=== PATIENT | male | born 1955 | race Caucasian/White ===

== ENCOUNTER 2021-12-23 07:53 | Inpatient (IN) | payer BC, MEDICARE ==
[~2021-12-23] VITALS: Ht 188 cm; Wt 83.0 kg
--- NOTE | 2021-12-23 07:55 | NUR ---
BIB C/O R UPPER QUADRANT PAIN X 2 DAYS AND DIARRHEA. TO ER BED 11, HOOKED TO MONITOR, CHANGED TO HOSP GOWN, WARM BLANKET PROVIDED. PATIENT AAO x 4. BREATHING EVEN AND UNLABORED. AWAITING MD AYERS
--- NOTE | 2021-12-23 07:58 | NUR ---
URINE COLLECTED AND SENT
--- NOTE | 2021-12-23 08:02 | NUR ---
IV ESTABLIHSED L AC 20G. LABS DRAWN AND COLLECTED AT BEDSIDE
--- NOTE | 2021-12-23 08:10 | NUR ---
DR CASTILLO AT BEDSIDE
[2021-12-23 08:40] LABS: BASOPHILS % (AUTO) 0.1 % (0.0-2.0); HEMATOCRIT 52 % (39-51); HEMOGLOBIN 16.9 g/dL (13.5-17.5); LYMPHOCYTES # (AUTO) 0.7 K/uL (0.8-4.8); LYMPHOCYTES % (AUTO) 7.4 % (20.0-44.0); MEAN CORPUSCULAR HGB CONC 33 g/dl (31.0-36.0); MEAN CORPUSCULAR VOLUME 86 fL (80-96); MONOCYTES # (AUTO) 0.7 K/uL (0.1-1.30); MONOCYTES % (AUTO) 7.1 % (2.0-12.0); NEUTROPHILS # (AUTO) 8.2 K/uL (1.8-8.9); NEUTROPHILS % (AUTO) 85.4 % (43.0-81.0); PLATELET COUNT (AUTO) 263 K/uL (150-450); RED BLOOD CELL COUNT(AUTO) 6.01 MIL/uL (4.5-6.0); WHITE BLOOD COUNT (AUTO) 9.6 K/uL (4.3-11.0)
[2021-12-23] MEDS ORDERED: ONDANSETRON HCL/PF 4 MG/2 ML VIAL ONE (08:44)
[2021-12-23] MEDS ORDERED: MORPHINE SULFATE INJ 4 MG/ML DISP.SYRIN ONE ×2 (08:44→10:03)
[2021-12-23 08:59] LABS: ALBUMIN 3.9 g/dL (3.4-5.0); BILIRUBIN,DIRECT 0.2 mg/dL (0.0-0.2); BILIRUBIN,TOTAL 0.9 mg/dL (0.2-1.0); BILIRUBIN,URINE NEGATIVE (NEGATIVE); COLOR,URINE YELLOW (YELLOW); CREATININE 1.8 mg/dL (0.6-1.3); LEUKOCYTE ESTERASE ,URINE NEGATIVE (NEGATIVE); NITRITE, URINE NEGATIVE (NEGATIVE); PH,URINE 6.5 (5.0-8.0); PROTEIN,URINE TRACE mg/dl (NEGATIVE); UGLUCOSE NEGATIVE (NEGATIVE); UROBILINOGEN,URINE 0.2 EU/dL (0.2)
[2021-12-23 09:15] LABS: BACTERIA,URINE Many /HPF (None Seen); WBC,URINE 51-80 /HPF (0-3)
[2021-12-23] MEDS ORDERED: MORPHINE SULFATE INJ 2 MG/ML DISP.SYRIN IV ONE ×2 (09:30→10:30)
[2021-12-23] MEDS ORDERED: ONDANSETRON HCL/PF 4 MG/2 ML VIAL IV ONE (09:30)
[2021-12-23] MEDS ORDERED: IV NS 0.9% 250 ML BAG IV ONE (09:30)
[2021-12-23] MEDS ORDERED: IV NS 0.9% 1,000 ML BAG IV ONE (10:00)
[2021-12-23] MEDS ORDERED: KETOROLAC TROMETHAMINE 15 MG/ML VIAL ONE (10:03)
[2021-12-23] MEDS ORDERED: KETOROLAC TROMETHAMINE INJ 30 MG/ML VIAL IM ONE (10:30)
[2021-12-23] MEDS ORDERED: CEFTRIAXONE 1GM BAG (ER ONLY) 1 GM/50 ML PIGGYBACK IV ONE (10:30)
[2021-12-23] MEDS ORDERED: CEFTRIAXONE 1GM BAG (ER ONLY) 50 ML IV ONE (10:31)
[2021-12-23] MEDS ORDERED: ATEN25TA PO (10:36)
[2021-12-23] MEDS ORDERED: ATOR10TA PO (10:36)
--- NOTE | 2021-12-23 10:38 | NUR ---
COVID TEST COLLECTED AND SENT
[2021-12-23] MEDS ORDERED: FAMO40TA7 PO (10:58)
--- NOTE | 2021-12-23 11:35 | NUR ---
CALLED [facility] TO [address] HO.
--- NOTE | 2021-12-23 11:47 | NUR ---
CALLED NURSING SUP FOR BED INQUIRY. AWAITING FOR CALLBACK.
[2021-12-23] MEDS ORDERED: FAMOTIDINE 40 MG TABLET PO PRN (12:00)
[2021-12-23] MEDS ORDERED: ACETAMINOPHEN 325 MG TABLET PO PRN (12:00)
[2021-12-23] MEDS ORDERED: hydrALAZINE HCL IV 20 MG VIAL IV PRN (12:00)
--- NOTE | 2021-12-23 12:39 | NUR ---
RECEIVED CALL BACK FROM NURSING SUP, PT GIVEN RM [phone] BED 2.
--- NOTE | 2021-12-23 12:54 | NUR ---
REPORT GIVEN TO ROBINSON FOR GORDON
[2021-12-23] MEDS ORDERED: FAMOTIDINE (20 MG) 20 MG TABLET PO PRN (13:30)
--- NOTE | 2021-12-23 13:30 | NUR ---
PT TRANPORTED TO 3W IN STABLE CONDITION AND RECIVED BY NURSE WILLIS
[2021-12-23] MEDS: MORPHINE SULFATE INJ 2 MG/ML DISP.SYRIN IV PRN ×2 (13:32→17:17)
[2021-12-23] MEDS: IV NS 0.9% 1,000 ML IV PRN (13:57)
--- NOTE | 2021-12-23 14:00 | NUR ---
RN ADMITTING NOTES ADMITTED THIS 66 Y/O MALE PATIENT FROM [facility], CAME TO THE UNIT @1320, TRANSPORTED VIA GURNEY, ACCOMPANIED BY ER STAFF CORNELIO PEREZ. PATIENT IS ALERT AND ORIENTED X4, VERBALLY RESPONSIVE, NO SIGNS OF ACUTE DISTRESS NOTED. WITH ADMITTING DIAGNOSIS OF ABDOMINAL PAIN AND UTI. NOTED WITH IV ACCESS ON LEFT ANTECUBITAL AREA #20G, INTACT AND PATENT, FLUSHES WELL. 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 PATIENT STILL C/O ABDOMINAL PAIN. WILL MEDICATE FOR PAIN NEEDED. BODY ASSESSMENT DONE, SKIN GENERALLY INTACT. OLD SURGICAL SCAR NOTED ON ABDOMINAL AREA. NO SKIN ISSUES NOTED ON ADMISSION. PATIENT ORIENTED TO ROOM. SAFETY MEASURE IN PLACE. BED IN LOWEST AND LOCKED POSITION, SR UP X2, CALL LIGHT PLACED WITHIN EASY REACH. VITAL SIGNS FOLLOWS: 98.2, 76, 18, 121/77, SPO2 97% IN RA. WILL CONTINUE TO MONITOR PATIENT.
[2021-12-23] MEDS: CEFEPIME 2 GM in IV D5W 100 ML IV SCH ×2 (14:06→21:16)
[2021-12-23 16:03] VITALS: BP 129/77
[2021-12-23] MEDS: ATENOLOL 25 MG TABLET PO SCH (17:00)
[2021-12-23] MEDS: HYDROMORPHONE 1 MG/1 ML DISP.SYRIN IV PRN ×2 (18:52→21:39)
--- NOTE | 2021-12-23 19:00 | NUR ---
RN CLOSING NOTES PATIENT IN BED, AWAKE, NO SIGNS OF ACUTE DISTRESS NOTED. STABLE ON ROOM AIR. NO SOB NOTED. IV ACCESS ON LEFT AC #20G, INTACT AND PATENT, WITH NS @125 ML/HR INFUSING WELL. STILL WITH C/O ABDOMINAL PAIN. MEDICATED WITH MORPHINE AND DILAUDID NEEDED. CURRENTLY ON NPO. SAFETY MEASURE MAINTAINED. BED IN LOWEST AND LOCKED POSITION, SIDE RAILS UP X2, CALL LIGHT PLACED WITHIN EASY REACH. WILL ENDORSE TO NEXT SHIFT FOR CONTINUITY OF CARE.
[2021-12-23 20:00] VITALS: BP 133/79
--- NOTE | 2021-12-23 20:00 | NUR ---
RECEIVED PATIENT IN BED, ALERT/ORIENTED X4, ROOM AIR, EPIGASTRIC PAIN, NO N/V AT THIS TIME, NPO NOW, NS AT 125 ML/HR, INDEPENDENT WITH ADLS, AMBULATES, KEPT SAFE, WILL CONTINUE TO MONITOR.
[2021-12-23] MEDS: HEPARIN SODIUM, PORCINE 5000 UNITS/1 ML VIAL SQ SCH (21:15)
[2021-12-23] MEDS: ATORVASTATIN 10 MG TABLET PO SCH (22:00)
[2021-12-24] MEDS: HYDROMORPHONE 1 MG/1 ML DISP.SYRIN IV PRN ×6 (00:20→17:15)
[2021-12-24] MEDS: IV NS 0.9% 1,000 ML IV PRN (00:33)
[2021-12-24 04:00] VITALS: BP 110/70
[2021-12-24] MEDS: ONDANSETRON HCL/PF 4 MG/2 ML VIAL IVP PRN (04:07)
[2021-12-24 06:10] LABS: BASOPHILS % (AUTO) 0.1 % (0.0-2.0); HEMATOCRIT 44 % (39-51); HEMOGLOBIN 14.6 g/dL (13.5-17.5); LYMPHOCYTES # (AUTO) 0.8 K/uL (0.8-4.8); LYMPHOCYTES % (AUTO) 9.4 % (20.0-44.0); MEAN CORPUSCULAR HGB CONC 33 g/dl (31.0-36.0); MEAN CORPUSCULAR VOLUME 86 fL (80-96); MONOCYTES % (AUTO) 11.1 % (2.0-12.0); NEUTROPHILS # (AUTO) 6.8 K/uL (1.8-8.9); NEUTROPHILS % (AUTO) 79.4 % (43.0-81.0); PLATELET COUNT (AUTO) 203 K/uL (150-450); RED BLOOD CELL COUNT(AUTO) 5.11 MIL/uL (4.5-6.0); WHITE BLOOD COUNT (AUTO) 8.5 K/uL (4.3-11.0)
--- NOTE | 2021-12-24 06:51 | NUR ---
ALERT/ORIENTED X4, DX UTI, ROOM AIR, EPIGASTRIC PAIN, DILAUDID 1MG IV Q3HRS, GIVEN ROUND THE CLOCK, ADEQUATE RELIEF, NAUSEA WO VOMITING, ZOFRAN GIVEN X1. CONTINENT OF BOWEL AND BLADDER, INDEPENDENT WITH AMBULATION, PER DR. HOUSTON, ATROPHIC KIDNEY, NPO NOW, PER PATIENT UNABLE TO TOLERATE ANYTHING PO. UROLOGY CONSULT, AGGRESSIVE FLUID RESUSCITATION, NEPHRO CONSULT, PAIN CONTROL. PENDING US BLADDER, CONTINUE MAXIPIME Q12 HOURS.
--- NOTE | 2021-12-24 07:35 | NUR ---
RN NOTES AMBULATES W/ STEADY GAIT, NOT IN ACUTE DISTRESS. STILL W/ ABD PAIN, TOLERABLE AT THIS TIME. NPO STATUS. IVF INFUSING. SAFETY MEASURES IN PLACE. WILL CONTINUE TO MONITOR.
[2021-12-24 07:45] LABS: ALBUMIN 2.6 g/dL (3.4-5.0); BILIRUBIN,TOTAL 0.5 mg/dL (0.2-1.0); CALCIUM, SERUM 7.9 mg/dL (8.5-10.1); CREATININE 1.2 mg/dL (0.6-1.3); MAGNESIUM 1.8 mg/dL (1.8-2.4); PHOSPHORUS 2.5 mg/dL (2.5-4.9); POTASSIUM 4.2 mmol/L (3.5-5.1); TOTAL PROTEIN, SERUM 5.7 g/dL (6.4-8.2)
[2021-12-24] MEDS: ATENOLOL 25 MG TABLET PO SCH ×2 (08:27→17:16)
[2021-12-24] MEDS: HEPARIN SODIUM, PORCINE 5000 UNITS/1 ML VIAL SQ SCH ×2 (09:05→20:43)
[2021-12-24] MEDS: CEFEPIME 2 GM in IV D5W 100 ML IV SCH ×2 (09:05→20:33)
--- NOTE | 2021-12-24 10:38 | NUR ---
RN NOTES PATIENT SEEN BY DR. GURROLA TODAY W/ ORDER NOTED. START W/ CLEAR LIQUID FOR NOW TO CHECK FOR TOLERANCE.
--- NOTE | 2021-12-24 12:50 | NUR ---
RN NOTES AT BEDSIDE TO VISIT PATIENT.
--- NOTE | 2021-12-24 14:13 | NUR ---
RN NOTES PATIENT CURRENTLY TOLERATING CLEAR LIQUIDS; ABLE TO DRINK WATER AND EAT JELLO AT THIS TIME. NO COMPLAINT OF N/V. WILL CONTINUE TO MONITOR.
--- NOTE | 2021-12-24 18:48 | NUR ---
RN NOTES PATIENT ABLE TO AMBULATE TO BATHROOM, ENCOURAGED OF PATIENT TO DO SO WHEN PHYSICALLY ABLE. IVF PAUSED AT THIS TIME IN CASE HE WANTS TO AMBULATE IN THE UNIT. PROVIDED W/ WALKER AT BEDSIDE FOR AMBULATION. PAIN MANAGED APPROPRIATE. NO COMPLAINT OF N/V AT THIS TIME. SAFETY MEASURES IN PLACE. WILL ENDORSE TO BUSINESS OPERATIONS SPECIALIST RN FOR GORDON.
--- NOTE | 2021-12-24 19:20 | NUR ---
RN NOTE PT AWAKE, A/OX4. DENIES PAIN, DENIES N/V AT THIS TIME. IV SITE: - #18G, INTACT/PATENT, RUNNING NS @125ML/HR. PT WENT TO AMBULATE IN HALLWAY WITH . PT WITH SLOW STEADY GAIT. LEONARD WELL. NO SOB. TELE MONITOR READING SR, HR 86. PT IN NO ACUTE DISTRESS. SAFETY MEASURES IN PLACE. WILL CONT TO MONITOR.
[2021-12-24] MEDS: ATORVASTATIN 10 MG TABLET PO SCH (20:39)
[2021-12-24 21:31] VITALS: BP 124/82
--- NOTE | 2021-12-24 22:36 | NUR ---
RN NOTE PT C/O STOMACH/GAS PAIN, ASKING FOR ANTI-GAS MED. REQUESTED TO ONCNICKOLAS QUARLES DNP WITH ORDER FOR MAALOX 30CC Q8H PRN
[2021-12-24] MEDS: MAG HYDROX/AL HYDROX/SIMETH 30 ML UDC PO PRN (22:42)
--- NOTE | 2021-12-25 00:06 | NUR ---
RN NOTE PT REPORTS RELIEF FROM GAS/STOMACH UPSET.
[2021-12-25 00:57] VITALS: BP 121/73
[2021-12-25] MEDS: HYDROMORPHONE 1 MG/1 ML DISP.SYRIN IV PRN ×5 (01:07→20:51)
[2021-12-25 04:42] VITALS: BP 123/73
--- NOTE | 2021-12-25 07:44 | NUR ---
RN OPENING NOTES Patient seen comfortably lying in bed, no shortness of breath, no apparent distress noted, breathing even and unlabored, denies any pain or discomfort at this time, no grimacing. Call light left within reach, safety precautions in place, brakes locked, side rails up X 2.
[2021-12-25] MEDS: ATENOLOL 25 MG TABLET PO SCH ×2 (08:48→17:00)
[2021-12-25] MEDS: HEPARIN SODIUM, PORCINE 5000 UNITS/1 ML VIAL SQ SCH ×2 (08:49→20:52)
[2021-12-25 09:00] VITALS: BP 116/73
[2021-12-25] MEDS: CEFEPIME 2 GM in IV D5W 100 ML IV SCH ×2 (09:27→20:49)
[2021-12-25 09:29] LABS: HEMATOCRIT 43 % (39-51); HEMOGLOBIN 14.3 g/dL (13.5-17.5); LYMPHOCYTES # (AUTO) 0.9 K/uL (0.8-4.8); MEAN CORPUSCULAR HGB CONC 33 g/dl (31.0-36.0); MEAN CORPUSCULAR VOLUME 86 fL (80-96); MONOCYTES # (AUTO) 0.9 K/uL (0.1-1.30); MONOCYTES % (AUTO) 9.7 % (2.0-12.0); NEUTROPHILS # (AUTO) 7.4 K/uL (1.8-8.9); NEUTROPHILS % (AUTO) 80.3 % (43.0-81.0); PLATELET COUNT (AUTO) 213 K/uL (150-450); RED BLOOD CELL COUNT(AUTO) 5.03 MIL/uL (4.5-6.0); WHITE BLOOD COUNT (AUTO) 9.2 K/uL (4.3-11.0)
[2021-12-25] MEDS: IV NS 0.9% 1,000 ML IV PRN (09:34)
[2021-12-25 09:35] LABS: CALCIUM, SERUM 8.1 mg/dL (8.5-10.1); POTASSIUM 3.9 mmol/L (3.5-5.1)
[2021-12-25 09:41] LABS: ALBUMIN 2.4 g/dL (3.4-5.0); BILIRUBIN,TOTAL 0.5 mg/dL (0.2-1.0); TOTAL PROTEIN, SERUM 5.6 g/dL (6.4-8.2)
[2021-12-25] MEDS: MAG HYDROX/AL HYDROX/SIMETH 30 ML UDC PO PRN (12:58)
[2021-12-25 16:00] VITALS: BP 108/67
[2021-12-25] MEDS: PANTOPRAZOLE 40 MG VIAL IV SCH (17:15)
--- NOTE | 2021-12-25 18:37 | NUR ---
RN CLOSING NOTES Patient lying in bed, no apparent distress noted, no dizziness, no palpitations, and no chest pain, breathing even and unlabored, no shortness of breath, denies any pain or discomfort at this time, remained afebrile. All medications given per MD order, tolerating well. Pain medication given as needed when non pharmacological measures ineffective. Patient has an order for IV antibiotics, tolerated well and has IV peripheral line on his left antecubital patent, intact and flushing well, no redness, no swelling noted, no s/s of infiltration at this time. All needs attended, aspiration precautions rendered, kept clean and dry, safety precautions in place, brakes locked, side rails up X 2, call light left within reach.
--- NOTE | 2021-12-25 19:54 | NUR ---
MS/TELE/RN PATIENT IS AWAKE, ALERT, ORIENTED, WITH MILD PAIN NOT ASKING FOR PAIN MEDICATION AT THIS TIME, NO SIGNS OF DISTRESS NOTED, CALL LIGHT IN REACH. WILL MONITOR.
[2021-12-25 20:00] VITALS: BP 113/63
[2021-12-25] MEDS: MAG HYDROX/AL HYDROX/SIMETH 30 ML UDC PO SCH (20:50)
[2021-12-25] MEDS: ATORVASTATIN 10 MG TABLET PO SCH (20:50)
[2021-12-26] MEDS ORDERED: TEMAZEPAM 15 MG CAPSULE PO PRN (00:30)
--- NOTE | 2021-12-26 02:01 | NUR ---
MS/TELE/RN PATIENT IS SLEEPING AT THIS TIME, APPEARS COMFORTABLE, NO SIGNS OF DISTRESS NOTED, CALL LIGHT IN REACH, WILL CONTINUE TO MONITOR.
[2021-12-26] MEDS: MAG HYDROX/AL HYDROX/SIMETH 30 ML UDC PO SCH ×3 (05:56→21:52)
--- NOTE | 2021-12-26 05:59 | NUR ---
MS/TELE/RN PATIENT IS AWAKE, ALERT, NO SIGNS OF DISTRESS NOTED, CALL LIGHT IN REACH. ALL NEEDS ATTENDED AT THIS TIME, WILL CONTINUE TO MONITOR.
[2021-12-26 07:23] LABS: ALBUMIN 2.3 g/dL (3.4-5.0); BILIRUBIN,TOTAL 0.5 mg/dL (0.2-1.0); CALCIUM, SERUM 8.1 mg/dL (8.5-10.1); CREATININE 1.1 mg/dL (0.6-1.3); TOTAL PROTEIN, SERUM 5.4 g/dL (6.4-8.2)
--- NOTE | 2021-12-26 07:30 | NUR ---
MS RN OPENING NOTES RECEIVED PATIENT IN BED AWAKE, A/O X4. ON ROOM AIR TOLERATING WELL. BREATHING IS EVEN AND NONLABORED. NOT IN DISTRESS. WITH IV ACCESS AT RIGHT FOREARM G20 SALINE LOCKED, PATENT AND INTACT. SAFETY MEASURES IN PLACED. CALL LIGHT WITHIN REACH. BED ON LOWEST, LOCKED POSITION, SIDE RAILS UP X2. WILL CONTINUE TO MONITOR.
[2021-12-26 07:31] LABS: POTASSIUM 3.7 mmol/L (3.5-5.1)
[2021-12-26 08:00] VITALS: BP 133/66
--- NOTE | 2021-12-26 09:00 | NUR ---
RN NOTES PATIENT REPORTED TO HAVE BOWEL MOVEMENT WITH STOOL THAT IS BLACK IN COLOR BUT NO ABDOMINAL PAIN NOR DISCOMFORT. SHOWED TO DR. CABRERA AND DOCTOR ORDERED STOOL EXAM FOR THE PATIENT.
[2021-12-26] MEDS: PANTOPRAZOLE 40 MG VIAL IV SCH ×2 (09:01→16:20)
[2021-12-26] MEDS: AMOX/CLAVULANATE 875 MG TABLET PO SCH ×2 (09:01→21:52)
[2021-12-26] MEDS: ATENOLOL 25 MG TABLET PO SCH ×2 (09:03→16:21)
[2021-12-26] MEDS: HEPARIN SODIUM, PORCINE 5000 UNITS/1 ML VIAL SQ SCH ×2 (09:06→20:46)
[2021-12-26 16:00] VITALS: BP 125/73
[2021-12-26 18:01] LABS: OCCULT BLOOD STOOL POSITIVE (NEGATIVE)
--- NOTE | 2021-12-26 19:20 | NUR ---
MS RN CLOSING NOTES PATIENT IN BED AWAKE, A/O X4. ON ROOM AIR TOLERATING WELL. BREATHING IS EVEN AND NONLABORED. NOT IN DISTRESS. WITH IV ACCESS AT RIGHT FOREARM G20 SALINE LOCKED, PATENT AND INTACT. DUE MEDS GIVEN. SAFETY MEASURES IN PLACED. CALL LIGHT WITHIN REACH. BED ON LOWEST, LOCKED POSITION, SIDE RAILS UP X2. WILL ENDORSE TO NEXT SHIFT FOR GORDON.
--- NOTE | 2021-12-26 19:45 | NUR ---
MS RN OPENING NOTES RECEIVED PATIENT LYING IN BED AWAKE. A/O X4. FEMALE VISITOR ON BEDSIDE. NO C/O PAIN AT THIS TIME. TOLERATING ROOM AIR WELL. NO APPARENT DISTRESS NOTED. BREATHING EVEN AND NON-LABORED. HAS LEFT ANTECUBITAL IV ACCESS #18G AND SALINE LOCKED. NO S/S OF INFILTRATION NOTED. SAFETY PRECAUTIONS IN PLACE. WILL CONTINUE PLAN OF CARE.
[2021-12-26 20:00] VITALS: BP 120/69
[2021-12-26] MEDS: ONDANSETRON HCL/PF 4 MG/2 ML VIAL IVP PRN (20:51)
--- NOTE | 2021-12-26 20:59 | NUR ---
MS RN NOTES C/O NAUSEA, NO EMESIS NOTED. PRN ZOFRAN ADMINISTERED AND TOLERATED WELL. DIDN'T GIVE AUGMENTIN AND MAALOX AT THIS TIME, WILL ADMINISTER ONCE NAUSEA IS RESOLVED.
[2021-12-26] MEDS: ATORVASTATIN 10 MG TABLET PO SCH (21:56)
--- NOTE | 2021-12-27 01:52 | NUR ---
MS RN NOTES PATIENT VERBALIZED "THIS NAUSEA IS GOING TO KILL ME". OFFERED TO GIVE ANOTHER DOSE OF ZOFRAN ONCE DUE, PATIENT REFUSED. EXPLAINED RISKS AND BENEFITS. I GAVE THE PATIENT APPLESAUCE AND ICE.
[2021-12-27] MEDS: MAG HYDROX/AL HYDROX/SIMETH 30 ML UDC PO SCH (04:49)
[2021-12-27] MEDS: ONDANSETRON HCL/PF 4 MG/2 ML VIAL IVP PRN (04:56)
--- NOTE | 2021-12-27 05:00 | NUR ---
MS RN NOTES PATIENT REQUESTED FOR ZOFRAN. NAUSEOUS BUT NO EMESIS. ADMINISTERED AND TOLERATED WELL.
--- NOTE | 2021-12-27 07:30 | NUR ---
MS RN CLOSING NOTES PATIENT LYING IN BED WITH EYES CLOSED. EASY TO AROUSE. A/O X4. BREATHING EVEN AND UNLABORED. TOLERATING ROOM AIR WELL. NOT IN ACUTE DISTRESS. NO PAIN OR DISCOMFORT. HAS LEFT ANTECUBITAL IV ACCESS #18G AND SALINE LOCKED. INTACT, PATENT AND FLUSHING. SAFETY MEASURES IN PLACE: BED LOW AND LOCKED, SIDE RAILS UP X2, CALL LIGHT WITHIN REACH. WILL ENDORSE TO AM NURSE FOR CONTINUITY OF CARE.
[2021-12-27 07:32] LABS: ALBUMIN 2.2 g/dL (3.4-5.0); BILIRUBIN,TOTAL 0.5 mg/dL (0.2-1.0); CALCIUM, SERUM 8.1 mg/dL (8.5-10.1); POTASSIUM 3.5 mmol/L (3.5-5.1); TOTAL PROTEIN, SERUM 5.3 g/dL (6.4-8.2)
[2021-12-27] MEDS ORDERED: ONDA4TAB5 PO (07:44)
[2021-12-27] MEDS ORDERED: LEVO250T59 PO (07:55)
[2021-12-27] MEDS: HEPARIN SODIUM, PORCINE 5000 UNITS/1 ML VIAL SQ SCH (09:00)
[2021-12-27] MEDS: AMOX/CLAVULANATE 875 MG TABLET PO SCH (09:38)
[2021-12-27] MEDS: PANTOPRAZOLE 40 MG VIAL IV SCH (09:38)
[2021-12-27 09:39] VITALS: BP 113/70
[2021-12-27] MEDS: ATENOLOL 25 MG TABLET PO SCH (09:39)
--- NOTE | 2021-12-27 10:50 | NUR ---
MS BRAILLE CODER NOTES PATIENT WAS SEEN BY DR. CABRERA AND ORDERED PATIENT FOR DISCHARGE. PATIENT IS FOR DISCHARGE TO HOME. DISCHARGE INSTRUCTION AND EDUCATION PROVIDED TO PATIENT AND EXPLAINED MEDICATIONS AND PRESCRIPTIONS. PATIENT VERBALIZED UNDERSTANDING. DISCHARGE FORM AND BELONGINGS LIST FORM SIGNED BY PATIENT. ALL BELONGINGS ACCOUNTED FOR. NAME WRIST BAND AND IV LINE REMOVED. PATIENT WAS ACCOMPANIED TO THE LOBBY VIA WHEELCHAIR WITH NAMED TOMMY IN STABLE CONDITION AND LEFT VIA PRIVATE CAR. MD AND CHARGE NURSE ARE AWARE OF THE DISCHARGE.
== END 2021-12-27 10:50 | disposition home or self-care (01) | DRG 391 ==
LOC: ER 08:07 → TELE 12:57 → MED 12-25 11:17
PROVIDERS: ADMIT Internal Medicine; ATTEND Family Medicine
DX: A08.4 Viral intestinal infection, unspecified (principal); N17.0 Acute kidney failure with tubular necrosis; K91.2 Postsurgical malabsorption, not elsewhere classified; N39.0 Urinary tract infection, site not specified; E87.2 Acidosis; E46 Unspecified protein-calorie malnutrition; E87.1 Hypo-osmolality and hyponatremia; T83.198A Other mechanical complication of other urinary devices and implants, initial encounter; N18.9 Chronic kidney disease, unspecified; E86.0 Dehydration; Z85.51 Personal history of malignant neoplasm of bladder; Z87.440 Personal history of urinary (tract) infections; Z90.49 Acquired absence of other specified parts of digestive tract; Z90.79 Acquired absence of other genital organ(s); B96.89 Other specified bacterial agents as the cause of diseases classified elsewhere; Z20.822 Contact with and (suspected) exposure to COVID-19; Z68.23 Body mass index [BMI] 23.0-23.9, adult; Y83.8 Other surgical procedures as the cause of abnormal reaction of the patient, or of later complication, without mention of misadventure at the time of the procedure; Y92.009 Unspecified place in unspecified non-institutional (private) residence as the place of occurrence of the external cause; R19.5 Other fecal abnormalities
CPT/HCPCS: 36415; 76700-TC; 80048-TC; 80053-TC; 80076-TC; 81001; 82272-TC; 83605-TC; 83690-TC; 83735-TC; 84100-TC; 85025-TC; 87040-TC; 87045-TC; 87081-TC; 87086-TC; 87177; 87186-TC; 87209; 89055; C9113; C9803; G0378; J0692; J0696; J1170; J1644; J1885; J2270; J2405; J7030; J7050; J7060